=== PATIENT | male | born 1995 | race Caucasian/White ===

== ENCOUNTER 2016-12-15 07:12 | Day surgery (SDC) | payer OTHER ==
[~2016-12-15 07:12] MED LIST: Buffered Lidocaine 1% SYR 3ML* 3 ML/SYR SYRINGE INTRADERM ONE; Dexamethasone IV* 4 MG/ML 1 ML (4 MG) IV SLOW PU ONE; Famotidine IV* 10 MG/ML 2 ML (20 mg) IV ONE
[2016-12-15] MEDS ORDERED: Bupivacaine 0.5% W/EPI SDV* 30 ML VIAL ONE (07:15)
[2016-12-15] MEDS ORDERED: ceFAZolin 2 GM PREMIX(*) 2 GM/50 ML BAG IVPB ONE (07:25)
[2016-12-15] MEDS ORDERED: Famotidine IV* 10 MG/ML 2 ML (20 mg) ONE (07:26)
[2016-12-15] MEDS ORDERED: Dexamethasone IV* 4 MG/ML 1 ML (4 MG) ONE (07:26)
[2016-12-15] MEDS ORDERED: HYDROmorphone* 1 MG/ML 1 ML SYR ONE ×4 (07:45→11:23)
[2016-12-15] MEDS ORDERED: Midazolam* 1 MG/ML 5 ML VIAL (5 MG) ONE (07:45)
[2016-12-15] MEDS ORDERED: fentaNYL* 50 MCG/ML 2 ML VIAL (100 MCG VIAL) ONE ×4 (07:45→12:21)
[2016-12-15] MEDS ORDERED: Bupivacaine 0.25% SDV* 30 ML ONE (09:42)
[2016-12-15] MEDS ORDERED: Meperidine SYRINGE* 50 MG/ML ONE (10:06)
[2016-12-15] MEDS ORDERED: DiMENhydriNATE IV* 50 MG/ML VIAL IV PUSH PRN (13:01)
[2016-12-15] MEDS ORDERED: fentaNYL* 50 MCG/ML 2 ML VIAL (100 MCG VIAL) IV PRN (13:01)
[2016-12-15] MEDS ORDERED: HYDROmorphone* 1 MG/ML 1 ML SYR IV PRN (13:01)
[2016-12-15] MEDS ORDERED: Scopolamine 1.5 mg* PATCH TRANSDERM PRN (13:01)
[2016-12-15] MEDS ORDERED: PROCHLORPERAZINE INJ 5 MG/ML 2 ML VIAL IV PRN (13:01)
[2016-12-15] MEDS ORDERED: Ondansetron INJ* 2 MG/ML VIAL IV PRN (13:01)
[2016-12-15 14:03] VITALS: BP 116/59
[2016-12-15] MEDS ORDERED: BSS OPTH.SOL* BTL ONE (14:06)
--- NOTE | 2016-12-16 06:48 | OP ---
OPERATIVE REPORT: DATE OF OPERATION: 12/15/16 DATE OF : 89 SURGEON: Hussein Escobar MD ESTATE PLANNING COUNSELOR: DIOGO Vee ANESTHESIOLOGIST: Dr. Perez. ANESTHESIA: General. 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 OPERATIVE PROCEDURE: Reconstruction of left thumb ulnar collateral ligament with autogenous split flexor carpi radialis tendon graft. 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 He, 26 days ago, was sliding into second base when he ruptured the ulnar collateral ligament of his left thumb and sounds like he may even dislocated the thumb. He did not want to sit out the rest of the baseball season and so he has been taping it and working with the trainers and they got him through the rest of the baseball season. He showed up at my office 2 days ago with an MRI that had already been done. The MRI did show a Stener lesion. On exam, he had sincere instability at the MP joint with UCL testing at both 0 and 30 degrees of flexion. The radial collateral ligament was stable. MRI did show some partial tearing of the radial collateral ligament but it was largely intact. I had discussed with Brian that we would now be almost 4 weeks out from the injury at the time of surgery. I was hopeful that I would still be able to have enough good local tissue to be able to repair the ulnar collateral ligament ; however, the potential for reconstruction was possible. We talked about risks and benefits and expected postoperative course and he wished to proceed. ESTIMATED BLOOD LOSS: 5 mL. COMPLICATIONS: None. FINDINGS: Very scarred in ulnar collateral ligament that was indeed displaced proximal to the adductor aponeurosis and already beginning to contract and degenerate. I was unable to mobilize this and advance this enough to bring it back into good contact with the proximal phalanx and therefore a reconstruction of the ligament was necessary. DESCRIPTION OF PROCEDURE: Brian was seen in the preoperative holding area. The correct site, side, and procedure were identified. We came back to the operating room where the arm was prepped and draped in the usual fashion and formal time-out was performed. The arm was exsanguinated with the Esmarch and tourniquet inflated to 250 mmHg. I began by making a lazy S incision over the ulnar aspect of the left thumb MP joint. Dissection was carried down bluntly and the adductor aponeurosis was identified. There was a dense amount of scar tissue. It was difficult to make out the normal anatomical structures as all the normal anatomical landmarks were all distorted. I did go ahead and perform a longitudinal split through the adductor aponeurosis. I retracted the tendon dorsally and volarly and there was indeed no ulnar collateral ligament visualized and there was just a very small stump of degenerative and disorganized scar tissue left attached to the base of the proximal phalanx. I then dissected along the dorsal aspect of the adductor aponeurosis and was able to separate the degenerating stump of ulnar collateral ligament together with significant amount of scar tissue free from the adductor aponeurosis. I was able to slowly and carefully debride all of the scar tissue away from the ulnar collateral ligament remnant until I began to encounter white or normal-appearing collagen fibers. I went ahead at this point and attempted to mobilize this. The ligament had folded back on itself and so I released that and slipped it back into a more normal position. It was quite degenerative. I reduced it back underneath the adductor aponeurosis. I had placed a 3-0 Ethibond traction suture in the distal aspect of the ligament stump as a traction suture. I pulled on this to attempt to bring the ligament back down to the base of the proximal phalanx. It simply would not reach and stayed just a couple of millimeters short. I came along the proximal and dorsal aspect of the ulnar collateral ligament origin and released a little bit of this with the Cherokee blader in an attempt to see if I could gain just a little bit more length and make a primary repair possible. I continued at this and ultimately I was able to get it maybe another millimeter closer, but it simply was not going to reach the base of the proximal phalanx and the remnant tissue that had remained attached to the base of the proximal phalanx was quite degenerative and really not of any substantial quality to handle repair. At this point, once I debrided all the scar tissue and attempted to mobilize the collateral ligament, I felt like if I released anymore to gain length, I would compromise the remaining origin of the ligament and the repair probably was going to fail. I, therefore, decided that it would be in his best interest to perform a reconstruction of the ligament. I, therefore, debrided off all the remaining soft tissue off the base of the proximal phalanx and off the collateral ligament fossa on the metacarpal head. I used a 2.5-mm drill bit to place 2 connecting unicortical bone tunnels and the base of the proximal phalanx, 1 at 11 o'clock and 1 at 7 o'clock. These were connecting subcortically. I used 3.5- mm drill bit to make 1 bone tunnel extending partially through the bone in the collateral ligament recess in the head of the metacarpal. Once I had created my bone tunnels, I went ahead and irrigated out the wound. I then turned my attention to obtain my tendon graft. I made a transverse 1-cm incision just proximal to the wrist flexion crease. The FCR tendon was identified. I decided to use the split FCR graft because he did not have palmaris longus tendon. Once I brought the FCR tendon up into the wound, I went ahead and made a longitudinal split taking the radial one-third of the tendon. I passed a mosquito through the longitudinal split and brought a 26-gauge wire through the tendon split. I then made a second transverse incision 7 or 8 cm proximal to the first and using the tenotomy scissors, I freed up the tendon sheath and any adhesions around the FCR tendon between the two incisions. I them made a third transverse incision 7 or 8 more centimeters proximal to that in similar fashion and freed up all the adhesions around the tendon. I then passed a Zaira under the skin connecting the two distal incisions and delivered the 26-gauge wire into the middle wound and then into the proximal wound to complete the tendon split. I then completed the harvest of the radial one-third of the tendon. I used a 2-0 Ethibond suture to whipstitch into the end of the tendon graft. I then used a suture shuttle to pass the tendon graft through the 2 interconnecting drill holes in the base of the proximal phalanx. I then sized my graft and trimmed it to length. I placed another whipstitch in the other end of the tendon graft. At this point, I made sure that both tendon tails would tuck nicely into my bone tunnel in the metacarpal head. I then drilled a Sukh needle through the radial cortex of the metacarpal head. A counter-incision was made on the radial side of the metacarpophalangeal joint where the Sukh needle exited. Dissection was carried down to bone and the Sukh needle was brought directly out of bone, free of any interposed soft tissue. Before I passed the end of the Sukh needle out through the radial cortex, I passed two suture tails from one end of the tendon graft. I used Sukh needle to deliver these out of the radial cortex. I used the Sukh needle in similar fashion, delivered the other two tendon tails from the other end of the tendon graft out of the radial cortex of the metacarpal but more proximally leaving the substantial, almost 1-cm bridge between the two sets of tendon tails. Once I had passed my tendon tails, I went ahead and pulled some tension and both ends of the tendon graft tuck nicely into the bone tunnel in the metacarpal head. I then positioned the thumb in neutral alignment and I pulled good amount of tension on the suture and tensioned the graft and then tied it off over the radial cortical bridge. I then placed one 3-0 ethibond suture in figure of 8 fashio between the two tails of the tendon graft ulnarly to secure them together. I then checked the stability clinically as well as fluoroscopically. I had obtained some mini C- arm images at the beginning of the surgery showing the laxity in the ulnar collateral ligament. The stability at 0 and 30 degrees had been restored. At this point, I went ahead and irrigated out the wound. I went ahead and closed the fascia on the radial incision to bury the knot. I went ahead and irrigated out the ulnar wound and the adductor aponeurosis was repaired with 3-0 Ethibond suture. The forearm wounds were irrigated as well and then all of the incisions were closed with 4-0 nylon suture. The wounds were dressed with Xeroform, 4x4s , sterile Webril, and a thumb spica splint was applied going out of the tip of the thumb, holding the thumb in the slightly adducted position. Tourniquet was deflated. The hand pinked up immediately. Brian was then awoken up and taken to the recovery room in stable condition. [id number]/[facility] #: [id number] MTDJai
--- NOTE | 2016-12-16 15:33 | RAD ---
INDICATION: Left hand surgery COMPARISON: Left thumb December 13, 2016 FINDINGS: 33 seconds of fluoroscopy were provided for the orthopedics department. Fluoroscopic spot imaging of the left thumb were obtained for operative control. CPT II Codes: 6045F (fluoro time doc)
[2016-12-18] MEDS ORDERED: Scopolomine PATCH Remove* 1 NOTE MISC PATCH OFF ONE (13:02)
== END 2016-12-15 14:22 | disposition home or self-care (01) ==
LOC: OREAST 07:12
PROVIDERS: ATTEND Orthopaedic Surgery Hand Surgery
DX: S63.642A Sprain of metacarpophalangeal joint of left thumb, initial encounter (principal); W21.89XA Striking against or struck by other sports equipment, initial encounter; Y93.64 Activity, baseball; Y92.320 Baseball field as the place of occurrence of the external cause
CPT/HCPCS: 76000; A9270-GY; J0690; J1100; J1170; J2250; J3010